=== PATIENT | male | born 1960 | race Caucasian/White ===

== ENCOUNTER 2016-05-31 12:20 | Emergency (ER) | payer OTHER ==
[~2016-05-31] VITALS: Ht 170.2 cm; Wt 113.4 kg
--- NOTE | 2016-05-31 12:54 | ED CARDIAC/CP/PALPITATIONS ---
History of Present Illness General Chief Complaint: Chest Pain Stated Complaint: CHEST PAIN Source: patient Exam Limitations: no limitations Vital Signs & Intake/Output Vital Signs & Intake/Output Vital Signs Date Time Temp Pulse Resp B/P Pulse O2 O2 Flow FiO2 Ox Delivery Rate 05/31 1234 96.8 90 18 125/78 95 Room Air Allergies Coded Allergies: NO KNOWN ALLERGIES (10/10/11) Reconcile Medications Pantoprazole Sodium (Protonix) 40 MG TABLET. 1 TAB PO DAILY GERD Triage Note: PT SENT TO ER BY HIS PMD FOR MID EPIGASTRIC PAIN AND ALOT OF BURPING FOR THE PAST 3 WEEKS . DENIES CP/SOB. WAS STARTED ON MED FOR REFLUX YESTERDAY Triage Nurses Notes Reviewed? yes Onset: Abrupt Duration: week(s): (3) Timing: recent history Quality/Severity: moderate, burning, pressure Location: epigastric Radiation: no radiation Associated Symptoms: BELCHING, BLOATING HPI: 55 year old male with h/o HIV, DM, HTN, dyslipidemia and lymphoma presents with 3 week history of epigastric abdominal pain, belching and bloating. He was started on dexilant for same symptoms on Friday and had diarrhea. Took the medication again and developed reflux. He stopped taking it after he realized it interacts with one of his HIV meds. Today he states pain/symptoms are gone after eating but feels his abdomen is distended. Patient reports diarrhea. No n/v/constipation. Positive sob with climbing a ladder. Past History Travel History Traveled to [place] past 21 day No Medical History Any Pertinent Medical History? see below for history Neurological: NONE EENT: NONE Cardiovascular: hypertension, hyperlipidemia Respiratory: NONE Gastrointestinal: NONE Hepatic: NONE Renal: NONE Musculoskeletal: NONE Psychiatric: NONE Endocrine: diabetes Blood Disorders: NONE Cancer(s): NONE SENIOR OFFICE ASSISTANT/Reproductive: NONE Influenza Vaccine: 12/21/04 Surgical History Surgical History: none Psychosocial History Who do you live with Spouse What is your primary language Latvian Tobacco Use: Never used ETOH Use: denies use Illicit Drug Use: denies illicit drug use Family History Hx Contributory? No Review of Systems Review of Systems Constitutional: Denies: chills, fever. EENTM: Reports: no symptoms. Respiratory: Denies: cough, short of breath. Cardiovascular: Denies: chest pain, palpitations. GI: Reports: abdominal pain, nausea. Denies: vomiting. Genitourinary: Denies: discharge, dysuria. Musculoskeletal: Denies: back pain. Skin: Reports: no symptoms. Neurological/Psychological: Reports: no symptoms. Hematologic/Endocrine: Denies: bruising, bleeding, polyuria, polydipsia. Immunologic/Allergic: Denies: splenectomy. All Other Systems: Reviewed and Negative Physical Exam Physical Exam General Appearance: well developed/nourished, alert, awake Head: atraumatic, normal appearance Eyes: Bilateral: normal appearance, PERRL, EOMI. Ears, Nose, Throat: normal pharynx, hearing grossly normal Neck: normal inspection, supple, full range of motion Respiratory: normal breath sounds, chest non-tender, quiet respiration Cardiovascular: regular rate/rhythm Peripheral Pulses: 2+ radial (R), 2+ radial (L) Gastrointestinal: normal bowel sounds, soft, tenderness (mild epigastric), NO REBOUND OR GUARDING Back: normal inspection, normal range of motion Extremities: normal inspection, normal capillary refill, normal range of motion, no edema Neurologic/Psych: no motor/sensory deficits, awake, alert, oriented x 3 Skin: intact, normal color, warm/dry, cyanosis, diaphoresis, ecchymosis, jaundice, mottled, pallor, rash Core Measures ACS in differential dx? Yes ASA ordered for poss ACS? No-ACS ruled out Severe Sepsis Present: No Septic Shock Present: No Progress Differential Diagnosis: AMI, aortic dissection, costochondritis, pancreatitis, pulmonary embolism, PUD/GERD, unstable angina Plan of Care: Orders Procedure Date/time Status TROPONIN LEVEL 05/31 1255 Complete LIPASE 05/31 1255 Complete COMPREHENSIVE METABOLIC PANEL 05/31 1255 Complete CBC WITHOUT DIFFERENTIAL 05/31 1255 Complete AMYLASE 05/31 1255 Complete EKG 05/31 1221 Active Laboratory Tests 05/31/16 1305: Anion Gap 12, Estimated GFR > 60, BUN/Creatinine Ratio 22.2, Glucose 293 H, Calcium 9.6, Total Bilirubin 0.7, AST 25, ALT 43, Alkaline Phosphatase 114, Troponin I < 0.01, Total Protein 7.4, Albumin 4.3, Globulin 3.1, Albumin/ Globulin Ratio 1.4, Amylase 42, Lipase 106, CBC w Diff NO MAN DIFF REQ, RBC 5.61 , MCV 84.6, MCH 29.3, RDW 15.0 H, MPV 6.1 L, Gran % 74.9, Lymphocytes % 18.0 L, Monocytes % 5.5, Eosinophils % 1.2, Basophils % 0.4, Absolute Granulocytes 3.2, Absolute Lymphocytes 0.8 L, Absolute Monocytes 0.2, Absolute Eosinophils 0.1, Absolute Basophils 0, PUBS MCHC 34.7 XRAY NEGATIVE FOR OBSTRUCTION/PERFORATION. LABS WNL. DISCUSSED FINDINGS WITH DR CASPER. (BALAJI TRUJILLO,SKIP) Diagnostic Imaging: Viewed by Me: Radiology Read. Discussed w/RAD: Radiology Read. Initial ED EKG: NSR, 1st degree av block Comments: PATIENT: BRICE SHERIFF PRESENT AGE: 55 PATIENT ACCOUNT NO: [id number] : 62 LOCATION: [facility] ORDERING PHYSICIAN: SKIP CARPIO MD SERVICE DATE: 05/31/16 EXAM TYPE: RAD - XRY-ABD MULTI VIEW W/PA CHEST EXAMINATION: XR ABDOMEN WITH PA CHEST CLINICAL INDICATION: Abdominal distention. COMPARISON: None TECHNIQUE: Supine and upright views of the abdomen. FINDINGS: There is no evidence of free air or obstruction. No abnormal calcifications are seen. The visualized lung is clear. The osseous structures appear unremarkable. There are few phleboliths within the right pelvis. IMPRESSION: No evidence of obstruction. DICTATED BY: RJ MURILLO MD DATE/TIME DICTATED:05/31/161422 VEGETABLE SPECKER:JANEEN DATE/TIME TRANSCRIBED:05/31/161422 CONFIDENTIAL, DO NOT COPY WITHOUT APPROPRIATE AUTHORIZATION. <Electronically signed in Other Vendor System> SIGNED BY: RJ MURILLO MD 05/31/161426 Departure Departure Time of Disposition: 1441 Disposition: HOME OR SELF CARE Condition: Stable Clinical Impression Primary Impression: GERD (gastroesophageal reflux disease) Referrals: HUMZA CASPER MD (PCP/Family) Additional Instructions: Please take the Protonix as directed. Follow-up with the GI specialist. Return to the ER for any changing or worsening symptoms. Departure Forms: Customer Survey General Discharge Information Prescriptions: Current Visit Scripts Pantoprazole Sodium (Protonix) 1 TAB PO DAILY #14 TAB Critical Care Note Critical Care Note Critical Care Time: non-applicable
[2016-05-31 13:15] LABS: ABSOLUTE BASOPHIL COUNT 0 /CUMM (0.0-0.2); ABSOLUTE EOSINOPHIL COUNT 0.1 /CUMM (0.0-0.7); ABSOLUTE GRANULOCYTE CT 3.2 /CUMM (1.4-6.5); ABSOLUTE LYMPH COUNT 0.8 /CUMM (1.2-3.4); ABSOLUTE MONOCYTE COUNT 0.2 /CUMM (0.10-0.60); BASOPHIL % 0.4 % (0.0-2.0); EOSINOPHIL % 1.2 % (0-5); GRANULOCYTE % 74.9 % (42.2-75.2); HEMATOCRIT 47.4 % (42-52); MEAN CORPUSCULAR HGB 29.3 PG (27.0-31.0); MEAN CORPUSCULAR HGB CONC 34.7 G/DL (33.0-37.0); MEAN CORPUSCULAR VOLUME 84.6 FL (80.0-94.0); MEAN PLATELET VOLUME 6.1 FL (7.4-10.4); PLATELET COUNT 136 /CUMM (130-400); RED BLOOD CELL CT 5.61 /CUMM (4.70-6.10); WHITE BLOOD CELL COUNT 4.2 /CUMM (4.8-10.8)
--- NOTE | 2016-05-31 14:27 | RADIOLOGY REPORT ---
EXAMINATION: XR ABDOMEN WITH PA CHEST CLINICAL INDICATION: Abdominal distention. COMPARISON: None TECHNIQUE: Supine and upright views of the abdomen. FINDINGS: There is no evidence of free air or obstruction. No abnormal calcifications are seen. The visualized lung is clear. The osseous structures appear unremarkable. There are few phleboliths within the right pelvis. IMPRESSION: No evidence of obstruction.
[2016-05-31 14:42] VITALS: BP 123/79
[2016-05-31] MEDS ORDERED: PROTONIX40 M3 PO (14:42)
== END 2016-05-31 14:55 ==
LOC: ERH
PROVIDERS: Emergency Medicine
DX: K21.9 Gastro-esophageal reflux disease without esophagitis (principal)
CPT/HCPCS: 74022; 93005; 93010